=== PATIENT | female | born 1960 | race Caucasian/White ===

== ENCOUNTER → 2019-05-18 | Outpatient (CLI) | payer OTHER ==
[2012-12-30 09:08] VITALS: BP 180/117
[~2019-05-18] MED LIST: ATIVAN0.5 MG PO; PROZAC10 MG PO; ULTRAM50 MG PO
== END ==
LOC: MAMMO 05-04 10:00
DX: Z12.31 Encounter for screening mammogram for malignant neoplasm of breast (principal)

== ENCOUNTER → 2024-07-28 | Outpatient (CLI) | payer OTHER | LOC: MAMMO 08:30 | DX: Z12.31 Encounter for screening mammogram for malignant neoplasm of breast (principal) ==